=== PATIENT | female | born 1990 | race Caucasian/White ===

== ENCOUNTER 2022-02-07 07:00 | Outpatient (NON) | payer OTHER, SELFPAY | END 2022-02-07 07:01 | disposition home or self-care (01) | LOC: ANHLAB 02-09 10:54 | PROVIDERS: PCP Physician Assistant Medical; Visit Provider Nurse Practitioner | DX: D49.2 Neoplasm of unspecified behavior of bone, soft tissue, and skin (principal) | CPT/HCPCS: 88304 ==

== ENCOUNTER 2023-05-11 08:01 | Emergency (ER) | payer OTHER, SELFPAY ==
[2023-05-11 08:16] VITALS: BP 116/71; PULSE 87; RESP 18; TEMP 35.9; O2SAT 100
--- NOTE | 2023-05-11 08:17 | ED.GENADULT ---
HPI - General Adult General Chief complaint: Unspecified Stated complaint: dizziness Time Seen by Provider: 05/11/23 08:20 Source: patient, RN notes reviewed and old records reviewed Mode of arrival: ambulatory Limitations: no limitations History of Present Illness HPI narrative: 32 year old female who presents to [facility] with complaints of awakening this morning getting up to use restroom and going back to bed and laying on her right side with experiencing room spinning. Patient reports in a short time she got up again and returned to bed laying on left side with room spinning occurring also. Patient reports history of anxiety and took Ativan because she became upset over situation and felt anxious. Patient admits to some nasal stuffiness and some fullness in her right ear, reports that daughter has had URI symptoms. Unable to reproduce symptoms in clinic on evaluation. Patient denies any headache or feelings of dizziness or any nausea. MD complaint: episode of vertigo this morning Onset (ago): hour(s) (this morning) Severity: moderate Treatments prior to arrival: other (ativan) Related Data Home Medications Medication Instructions Recorded Confirmed desogestrel 0.15 mg-ethinyl 1 tablet PO DAILY 11/04/21 02/09/23 estradiol 0.03 mg tablet (Apri) Allergies Allergy/AdvReac Type Severity Reaction Status Date / Time sulfamethoxazole Allergy Intermediate Hives Verified 01/27/23 13:34 [From Bactrim] trimethoprim [From Bactrim] Allergy Intermediate Hives Verified 01/27/23 13:34 Review of Systems Review of Systems: CONSTITUTIONAL: Denies fever, chills, or sweats. EYES: Denies visual changes, redness, or discharge. ENT: Denies rhinorrhea,some nasal stuffiness, no sore throat, reports some pressure in right ear CARDIOVASCULAR: Denies chest pain, palpitations, or edema. RESPIRATORY: Denies cough or dyspnea. GASTROINTESTINAL: Denies abdominal pain, nausea, vomiting, or diarrhea. GENITOURINARY: Denies dysuria or hematuria. SKIN: Denies rash or itching. MUSCULOSKELETAL: Denies back pain, joint pain, or myalgia. NEUROLOGIC: Denies headache, numbness, or weakness.episodes of vertigo this morning PSYCHIATRIC: Reports history of anxiety or depression. All systems reviewed & are unremarkable except as noted in HPI and below PMFSH Past Medical History Medical History Anxiety Kidney stones Skin lesion of back Surgical History Surgical History [place] teeth extracted Family History Family History Grandparent Diabetes mellitus Cancer Grandparent Diabetes mellitus Social History Social History Smoking status: Never smoker Second hand tobacco smoke exposure: No Alcohol intake: current Drinks per week: 1 Substance use: never Living arrangements: with family Comments At time of signature, agree with nursing past medical, surgical, social and family history. There is no relevant family history pertinent to the presenting complaint Exam Narrative: GENERAL: Well-appearing, well-nourished, and in no acute distress. HEAD: Normocephalic, atraumatic. EYES: PERRLA and EOMI. ENT: Nares clear,clear rhinorrhea,no epistaxis reports stuffiness Mucous membranes moist.Some right ear pressure with both TM's having dull light reflex no sore throat or any redness or swelling NECK: Supple. no lymphadenopathy CHEST: Clear to auscultation. No respiratory distress.SAO2 100% on room air HEART: Regular rate and rhythm. No murmur heard. Normal peripheral pulses. ABDOMEN: Soft, nontender, nondistended, normal active bowel sounds. EXTREMITIES: Normal range of motion. No edema. SKIN: Warm, dry, no rash. NEURO: No focal deficits. Alert and oriented x3.unable to reproduce vertigo on exam in clinic, cranial ne
== END 2023-05-11 08:41 | disposition home or self-care (01) ==
PROVIDERS: Emergency Provider Registered Nurse; PCP Physician Assistant Medical
DX: R42 Dizziness and giddiness (principal)
CPT/HCPCS: 99211; G0463

== ENCOUNTER 2023-12-18 17:49 | Emergency (ER) | payer OTHER, SELFPAY ==
[2023-12-18 18:06] VITALS: BP 130/76; PULSE 92; RESP 18; TEMP 36.7; O2SAT 100
--- NOTE | 2023-12-18 18:55 | ED.SKABFB ---
HPI - Skin/Abscess/Foreign Bdy General Chief complaint: Skin/Abscess/Foreign Body Stated complaint: Insect Bite on RT Leg Time Seen by Provider: 12/18/23 18:49 Source: patient and RN notes reviewed Mode of arrival: ambulatory Limitations: no limitations History of Present Illness HPI narrative: Patient presents today complaining of an insect bite to her right anterolateral lower leg. She noted the bite 4 days ago, but believes this was not when she was bit. States redness and worsening pain that time. She has applied an ice pack a few times to help with inflammation, but no other interventions. Denies history of staph infections, MRSA, abscesses or boils. Related Data Home Medications Medication Instructions Recorded Confirmed levonorgestrel 21 mcg/24 hr (up to 1 device intrauterine ONCE 12/18/23 12/18/23 8 years) 52 mg intrauterine device (Mirena) Allergies Allergy/AdvReac Type Severity Reaction Status Date / Time sulfamethoxazole Allergy Intermediate Hives Verified 12/18/23 18:21 [From Bactrim] trimethoprim [From Bactrim] Allergy Intermediate Hives Verified 12/18/23 18:21 Review of Systems Review of Systems: CONSTITUTIONAL: Denies body aches, fever, chills, or sweats. EYES: Denies visual changes, redness, or discharge. ENT: Denies rhinorrhea, congestion, sore throat, or otalgia. CARDIOVASCULAR: Denies chest pain, palpitations, or edema. RESPIRATORY: Denies cough or dyspnea. GASTROINTESTINAL: Denies abdominal pain, nausea, vomiting, or diarrhea. GENITOURINARY: Denies dysuria or hematuria. SKIN: + insect bite MUSCULOSKELETAL: Denies back pain, joint pain, or myalgia. NEUROLOGIC: Denies headache, numbness, tingling, or weakness. PSYCH: Denies depression or anxiety. [facility] Past Medical History Medical History Anxiety Kidney stones Skin lesion of back Surgical History Surgical History [place] teeth extracted Family History Family History Grandparent Diabetes mellitus Cancer Grandparent Diabetes mellitus Social History Social History Smoking status: Never smoker Second hand tobacco smoke exposure: No Alcohol intake: current Drinks per week: 1 Substance use: never Living arrangements: with family Comments At time of signature, I have reviewed and agree with nursing past medical, surgical, social and family history unless otherwise noted. Please see nursing chart for further information. There is no relevant family history pertinent to the presenting complaint Exam Narrative: GENERAL: Well-appearing, well-nourished, and in no acute distress. HEAD: Normocephalic, atraumatic. EYES: EOMI. No redness or drainage. Conjunctivae normal. ENT: Mucous membranes pink and moist. NECK: Normal AROM. CHEST: No respiratory distress. EXTREMITIES: Tiny scabbed puncture wound with 1.5 cm area of erythema and induration surrounding without fluctuance. Then 5 cm round ring surrounding this. Outer ring measures 8 cm round of slight hyperpigmentation. Area is slightly tender to palpation. Entire areas indurated. No drainage. SKIN: Warm, dry, no rash. Capillary refill normal. Normal skin turgor. NEURO: No focal deficits. Alert and oriented x3. Gait steady. PSYCH: Normal affect. No signs of depression or anxiety. Course Course Level of Care: Express Care Visit Vital Signs Vital signs: Vital Signs Temperature 98.1 F 12/18/23 18:06 Pulse Rate 92 12/18/23 18:06 Respiratory Rate 18 12/18/23 18:06 Blood Pressure 130/76 12/18/23 18:06 Pulse Oximetry 100 12/18/23 18:06 Oxygen Delivery Room Air 12/18/23 18:06 Temperature 98.1 F 12/18/23 18:06 Pulse Rate 92 12/18/23 18:06 Respiratory Rate 18 12/18/23
== END 2023-12-18 19:08 | disposition home or self-care (01) ==
PROVIDERS: Emergency Provider Nurse Practitioner
DX: S80.861A Insect bite (nonvenomous), right lower leg, initial encounter (principal); L08.9 Local infection of the skin and subcutaneous tissue, unspecified; W57.XXXA Bitten or stung by nonvenomous insect and other nonvenomous arthropods, initial encounter
CPT/HCPCS: 99213; G0463